=== PATIENT | female | born 1945 | race Caucasian/White ===

== ENCOUNTER 2017-07-05 07:01 | Day surgery (SDC) | payer MEDICARE, OTHER, SELFPAY ==
[2017-07-05] VITALS (7 sets, daily range): BP systolic 72–129; BP diastolic 38–75; PULSE 65–79; RESP 12–16; TEMP 36.1–36.3; O2SAT 96–100; BMI 24.0
[2017-07-05] MEDS: SODIUM CHLORIDE 0.9% 1,000 ML 200 ML IV ×2 (07:30→09:43)
--- NOTE | 2017-07-05 09:04 | PM.HP.1 ---
History of Present Illness Chief complaint: colonoscopy [id number] Narrative: Tanesha Menendez is a 72 year old female who presents today for a screening colonoscopy. Her last study was 9 years ago and she was determined to have one benign polyp. She denies any current problems related to the function of her GI tract. [facility] Social History household members: spouse Meds Home Medications Medication Instructions Recorded Confirmed Type alprazolam 0.25 mg PO PRN PRN 07/05/17 07/05/17 History levothyroxine 75 mcg/day PO DAILY 07/05/17 07/05/17 History losartan 25 mg PO DAILY 07/05/17 07/05/17 History metoprolol tartrate 50 mg PO DAILY 07/05/17 07/05/17 History Review of Systems Review of Systems All systems reviewed & are unremarkable except as noted in HPI and below Exam Vital Signs (past 8 hours): Vital Signs - 8 hr 07/05/17 07:18 Temperature 97.0 F L Pulse Rate 79 Respiratory Rate 15 Blood Pressure 129/75 H Pulse Oximetry 100 Pulse Oximetry 100 Oxygen Delivery Method Room Air Narrative Exam Narrative: Tanesha is a well-nourished well-developed lady in no apparent distress. HEENT: Normocephalic and atraumatic, pupils equal round reactive to light accommodation with anicteric sclerae Lungs: Clear to auscultation bilaterally Heart: Regular rate and rhythm Abdomen: Soft, nontender, active bowel sounds Extremities: Warm and well perfused, no edema Assessment & Plan Plan: Plan: Very healthy 72-year-old lady here for his screening colonoscopy. She has a history of having a single benign polyp removed approximately 9 years ago. We have discussed risks and benefits of the procedure and I expressed a desire to continue
--- NOTE | 2017-07-05 09:07 | P.HP_ITS ---
History of Present Illness Chief complaint: colonoscopy [id number] Narrative: Tanesha Menendez is a 72 year old female who presents today for a screening colonoscopy. Her last study was 9 years ago and she was determined to have one benign polyp. She denies any current problems related to the function of her GI tract. [facility] Social History household members: spouse Meds Home Medications Medication Instructions Recorded Confirmed Type alprazolam 0.25 mg PO PRN PRN 07/05/17 07/05/17 History levothyroxine 75 mcg/day PO DAILY 07/05/17 07/05/17 History losartan 25 mg PO DAILY 07/05/17 07/05/17 History metoprolol tartrate 50 mg PO DAILY 07/05/17 07/05/17 History Review of Systems Review of Systems All systems reviewed & are unremarkable except as noted in HPI and below Exam Vital Signs (past 8 hours): Vital Signs - 8 hr 3 07/05/17 07:18 Temperature 97.0 F L Pulse Rate 79 Respiratory Rate 15 Blood Pressure 129/75 H Pulse Oximetry 100 Pulse Oximetry 100 Oxygen Delivery Method Room Air Narrative Exam Narrative: Tanesha is a well-nourished well-developed lady in no apparent distress. HEENT: Normocephalic and atraumatic, pupils equal round reactive to light accommodation with anicteric sclerae Lungs: Clear to auscultation bilaterally Heart: Regular rate and rhythm Abdomen: Soft, nontender, active bowel sounds Extremities: Warm and well perfused, no edema Assessment & Plan Plan: Plan: Very healthy 72-year-old lady here for his screening colonoscopy. She has a history of having a single benign polyp removed approximately 9 years ago. We have discussed risks and benefits of the procedure and I expressed a desire to continue
[2017-07-05] MEDS: fentaNYL 250 MCG/5 ML INJ IV (09:25)
[2017-07-05] MEDS: MIDAZOLAM 5 MG/5 ML VIAL IV (09:25)
--- NOTE | 2017-07-05 09:26 | PM.OP.1 ---
Operative Date/Time/Diagnoses - Date of procedure: 07/05/17 Time of procedure: 09:27 Pre-op diagnosis: Screening Personal history of colon polyps Post-op diagnosis: same Procedure & Clinicians Procedure: Colonoscopy to the cecum Same procedure as scheduled: Yes Indications: Last colonoscopy 9 years ago Surgeon: Delilah Finnegan Anesthesia Type: Sedation (Versed 5 mg; fentanyl 200 mcg) Operative Notes Findings: 1. Excellent prep 2. No polyps or mass lesions 3. No AV malformations 4. Significant diverticulosis in the sigmoid region. Primarily large pockets. Relative sparing of the remainder of the colon 5. Grade 1-2 internal hemorrhoids Closure Type: not applicable Specimen(s): none sent Estimated Blood Loss (mL): 0 Procedure in detail: After obtaining informed consent, the patient was brought to the GI suite and placed in the left lateral decubitus position on the examination table. After placement of appropriate monitors, the patient was given incremental doses of Versed and Fentanyl until an appropriate level of sedation was achieved. A time out was held per [facility] protocol. A digital rectal examination was performed and did not reveal any masses or obstructing lesions. The colonoscope was gently passed into the patient's anus and the entire colon navigated to the level of the cecum with minimal difficulty. Once in the cecum, the scope was withdrawn being sure to go before and beyond all mucosal folds and prominences and get an excellent examination. The findings are noted above. At the level of the rectal vault, the scope was retroflexed and the internal anal canal was examined. The scope was straightened and air aspirated from the colon. The instrument was removed from the patient's body and the procedure was concluded. The patient was allowed to awaken from sedation without difficulty and taken to the post-anesthesia care unit in good condition. Total sedation time was 15 min Total withdrawal time was 7 min and 55 sec Complications: none Condition: stable Plan for aftercare: 1. Discharged home 2. Plan for next colonoscopy in 5-10 years or as clinically indicated
== END 2017-07-05 10:29 | disposition home or self-care (01) ==
PROVIDERS: Family Provider Physician Assistant; PCP Physician Assistant; Visit Provider Surgery
PROC: 0DJD8ZZ Inspection of Lower Intestinal Tract, Via Natural or Artificial Opening Endoscopic (ICD-10-PCS; CPT 45378; principal; 2017-07-05 07:45)
DX: Z12.11 Encounter for screening for malignant neoplasm of colon (principal); K57.30 Diverticulosis of large intestine without perforation or abscess without bleeding; K64.1 Second degree hemorrhoids; Z86.010 Personal history of colon polyps
CPT/HCPCS: G0105; 99152; J2250; J3010